=== PATIENT | female | born 1960 | race Caucasian/White ===

== ENCOUNTER 2021-02-28 06:17 | Day surgery (SDC) | payer OTHER ==
[2021-02-23 12:40] VITALS: BMI 22.4
[2021-02-28] MEDS ORDERED: LOCK ITEM NR ONE (06:32)
[2021-02-28] MEDS ORDERED: EPINEPHrine/PF 1 MG/1 ML (1:1,000) AMPULE ONE ×2 (07:08→07:33)
[2021-02-28] MEDS ORDERED: BUPIVACAINE HCL/PF 2.5 MG/ML - 30 ML VIAL IJ ONE ×2 (07:08→07:33)
[2021-02-28] MEDS ORDERED: MIDAZOLAM HCL 2 MG/2 ML SINGLE DOSE VIAL ONE ×2 (07:22)
[2021-02-28] MEDS ORDERED: SUCCINYLCHOLINE CHLORIDE 200 MG/10 ML SYRINGE ONE (07:23)
[2021-02-28] MEDS ORDERED: PROPOFOL 20 ML ONE ×6 (07:23→08:39)
[2021-02-28] MEDS ORDERED: ceFAZolin SODIUM 1 GM VIAL ONE (07:54)
[2021-02-28] MEDS ORDERED: ACETAMINOPHEN INJECTION 100 ML IVPB ONE (08:53)
[2021-02-28] MEDS ORDERED: ACETAMINOPHEN 1000 MG/100 ML VIAL IVPB ONE (09:00)
[2021-02-28] MEDS ORDERED: oxyCODONE HCL 5 MG TABLET PO PRN (10:50)
[2021-02-28] MEDS ORDERED: ONDANSETRON 4 MG/2 ML VIAL IVPUSH PRN (10:50)
[2021-02-28] MEDS ORDERED: LACTATED RINGERS SOLUTION 1,000 ML IV SCH (11:00)
[2021-02-28 11:10] VITALS: TEMP 98
[2021-02-28 11:13] VITALS: BP 125/65; PULSE 67
== END 2021-02-28 11:00 | disposition home or self-care (01) ==
LOC: FASU 06:17
PROVIDERS: ATTEND Orthopaedic Surgery
PROC: 0SBC0ZZ Excision of Right Knee Joint, Open Approach (ICD-10-PCS; 2021-02-28)
PROC: 0SQC4ZZ Repair Right Knee Joint, Percutaneous Endoscopic Approach (ICD-10-PCS; 2021-02-28)
PROC: 0JBN0ZZ Excision of Right Lower Leg Subcutaneous Tissue and Fascia, Open Approach (ICD-10-PCS; principal; 2021-02-28 08:07)
DX: M12.262 Villonodular synovitis (pigmented), left knee (principal); S83.241A Other tear of medial meniscus, current injury, right knee, initial encounter; X58.XXXA Exposure to other specified factors, initial encounter; Y93.9 Activity, unspecified; Y92.9 Unspecified place or not applicable
CPT/HCPCS: 94760; J0131

== ENCOUNTER 2024-09-15 06:23 | Day surgery (SDC) | payer OTHER ==
[2024-09-10 15:14] VITALS: BMI 21.4
[2024-09-15] MEDS ORDERED: PROPOFOL 40 ML ONE (07:07)
[2024-09-15] MEDS ORDERED: MIDAZOLAM HCL 2 MG/2 ML SINGLE DOSE VIAL ONE (07:08)
[2024-09-15] MEDS ORDERED: SUCCINYLCHOLINE CHLORIDE 200 MG/10 ML SYRINGE ONE (07:08)
[2024-09-15] MEDS ORDERED: BUPIVACAINE HCL/EPINEPHRINE/PF 30 ML VIAL IJ ONE ×2 (07:15→07:26)
[2024-09-15] MEDS ORDERED: ONDANSETRON 4 MG/2 ML VIAL ONE (07:42)
[2024-09-15] MEDS ORDERED: DEXAMETHASONE SOD PHOSPHATE 4 MG/1 ML VIAL ONE (07:42)
[2024-09-15] MEDS ORDERED: KETOROLAC TROMETHAMINE 30 MG/1 ML VIAL ONE (07:42)
[2024-09-15] MEDS ORDERED: ceFAZolin SODIUM 1 GM VIAL ONE (07:47)
[2024-09-15] MEDS ORDERED: ACETAMINOPHEN INJECTION 100 ML ONE (08:28)
[2024-09-15] MEDS: ACETAMINOPHEN 1000 MG/100 ML BAG IVPB ONE (08:30)
[2024-09-15] MEDS ORDERED: diazePAM 5 MG TABLET ONE (09:04)
[2024-09-15] MEDS: diazePAM 5 MG TABLET PO ONE (09:05)
[2024-09-15] MEDS: CycloBENZAprine HCL 5 MG TABLET PO ONE (09:45)
[2024-09-15 13:00] VITALS: TEMP 97.1
[2024-09-15] MEDS ORDERED: ONDANSETRON 4 MG/2 ML VIAL IVPUSH PRN (13:22)
[2024-09-15] MEDS ORDERED: oxyCODONE HCL 5 MG TABLET PO PRN (13:22)
[2024-09-15 13:29] VITALS: BP 120/68; PULSE 60; RESP 18
[2024-09-15] MEDS ORDERED: LACTATED RINGERS SOLUTION 1,000 ML IV SCH (13:30)
== END 2024-09-15 10:00 | disposition home or self-care (01) ==
LOC: FASU 06:23
PROVIDERS: ATTEND Orthopaedic Surgery
PROC: 0SBC4ZZ Excision of Right Knee Joint, Percutaneous Endoscopic Approach (ICD-10-PCS; principal; 2024-09-15 07:56)
DX: S83.241A Other tear of medial meniscus, current injury, right knee, initial encounter (principal); X58.XXXA Exposure to other specified factors, initial encounter; Y93.9 Activity, unspecified; Y92.9 Unspecified place or not applicable
CPT/HCPCS: 94760